=== PATIENT | female | born 1965 | race American Indian/Alaskan Native ===

== ENCOUNTER 2019-05-15 08:06 | Day surgery (SDC) | payer OTHER ==
[~2019-05-15 08:06] MED LIST: SODIUM CHLORIDE 0.9% 1000 ML 1,000 ML IV SCH
--- NOTE | 2019-05-15 09:04 | Anesthesia Day of Surgery ---
Anesthesia Day of Surgery - Day of Surgery Patient Examined: Yes Patient H&P Reviewed: Yes Patient is NPO: Yes Beta Blockers: No
--- NOTE | 2019-05-15 09:04 | Anesthesia Consultation ---
Anesthesia Consult and Med Hx Date of service: 05/15/19 - Airway Anesthetic Teeth Evaluation: Bridges ROM Head & Neck: Adequate Mental/Hyoid Distance: Adequate Mallampati Class: Class II Intubation Access Assessment: Probably Good - Pre-Operative Health Status ASA Pre-Surgery Classification: ASA2 Proposed Anesthetic Plan: MAC - Pulmonary Hx Smoking: Yes (past) Hx Asthma: No Hx Respiratory Symptoms: No SOB: No COPD: No Home Oxygen Therapy: No Hx Pneumonia: No Hx Sleep Apnea: Yes - Cardiovascular System Hx Hypertension: Yes Hx Coronary Artery Disease: No Hx Heart Attack/AMI: No Hx Angina: No Hx Percutaneous Transluminal Coronary Angioplasty (PTCA): No Hx Cardia Arrhythmia: No Hx Pacemaker: No Hx Internal Defibrillator: No Hx Valvular Heart Disease: No Hx Heart Murmur: No Hx Peripheral Vascular Disease: No - Central Nervous System Hx Neuromuscular Disorder: No Hx Seizures: No CVA: No Hx Back Pain: Yes (takes motrin) Hx Psychiatric Problems: Yes (anexity) - Gastrointestinal Hx Ulcer: No Hx Gastroesophageal Reflux Disease: Yes - Endocrine Hx Renal Disease: No Hx End Stage Renal Disease: No Hx Cirrhosis: No Hx Liver Disease: No Hx Insulin Dependent Diabetes: No Hx Non-Insulin Dependent Diabetes: No Hx Thyroid Disease: No Hx Hypothyroidism: No Hx Hyperthyroidism: No - Hematic Hx Anemia: No Hx Sickle Cell Disease: No - Other Systems Hx Alcohol Use: Yes (occ.) Hx Substance Use: No Hx Cancer: No Hx Obesity: No
[2019-05-15] MEDS ORDERED: PROPOFOL 200 MG/20 ML VIAL IV ONE ×2 (09:51→10:25)
--- NOTE | 2019-05-15 09:56 | History and Physical Report ---
HISTORY OF PRESENT ILLNESS: This is a 54-year-old -[place] African female with an underlying history of hypertension and a strong family history of cancer. The patient's sister had ovarian cancer. Father had colon cancer and mother also has a history of multiple sclerosis. Her last colonoscopy was about 4-5 years back, back in 2014, she also has been having GERD symptoms and is to have an EGD as well as a colonoscopy done at [facility] on 05/15/2019. The patient has used the [facility]. MEDICATIONS: She normally uses include lisinopril and hydrochlorothiazide. SOCIAL HISTORY: She denies any history of smoking. Admits to drinking alcohol on occasion. No cardiac issues. No flu shots. ALLERGIES: SHE HAS A HISTORY OF ALLERGY TO MORPHINE. PHYSICAL EXAMINATION: VITAL SIGNS: She is afebrile. Height is 5'6 pressure is 152/94, pulse is 79. HEENT: Shows no JVD. LUNGS: Clear to auscultation. CARDIOVASCULAR: Normal. ABDOMEN: Soft. Bowel sounds present. NEUROLOGIC: The patient is otherwise alert and oriented. ASSESSMENT: Colon polyp screening, family history of cancer, gastroesophageal reflux disease symptoms, esophagitis, hypertension. PLAN: To do an EGD and a colonoscopy at [facility] on 05/15/2019. The patient is to use the [facility]. JOB# [id number] JED/JOSE A
[2019-05-15] MEDS ORDERED: fentaNYL 100 MCG/2 ML INJ ONE (10:24)
--- NOTE | 2019-05-15 10:39 | Procedure Note ---
Date of procedure: 05/15/19 Pre-op diagnosis: GERD/ Colon Polyp Screening/F/H/O Cancer (Father- colon Cancer) Post-op diagnosis: other (Moderate,Erosive Esophagitis/Moderate,Hiatal Hernia/Gastritis/Gastric Fundic Glands/Moderate,Internal Hemorrhoids/Scattered, Diverticular disease/Few samll (possibly Hyperplastic) Rectal Polyps) Procedure: EGD with biopsy and Colonoscopy with Biopsy Anesthesia: MAC Surgeon: MICHELLE BYNUM Estimated blood loss: minimal Pathology: list Specimen disposition: to lab Condition: stable Disposition: same day (Avoid aspirin and NSAID for 4 days; otherwise resume home medication. Treat with PPI,Anusol HC supp, Sitz Bath and follow up in 1 to 2 weeks ([phone]). Patient will be adviced about lifestyle changes for her Hiatal Hernia.)
--- NOTE | 2019-05-15 10:41 | Operative Report ---
PROCEDURE: Esophagogastroduodenoscopy with biopsy. INDICATIONS: This is a 54-year-old -Indian female who has been having GERD symptoms. She is also here for colonoscopy as part of colon polyp screening since she has a strong family history of cancer. PROCEDURE: Esophagogastroduodenoscopy was done after getting informed consent with MAC anesthesia. Instrument was passed through the hypopharynx into the esophagus, which showed moderate erosive esophagitis. Photo documentation and biopsy was obtained. The stomach showed fundic gland in the gastric body, which were biopsied as well as a moderate hiatal hernia. There was some antral gastritis present. The pylorus was patent. Duodenum in the first and second portion appeared normal. Additional biopsy was done from the gastric antrum, gastric body, and angular incisura to rule out for H. pylori and atrophic gastritis. There was no peptic ulcer disease noted. There was minimal bleeding associated with the procedure. No complications associated with the procedure. ASSESSMENT: Gastroesophageal reflux disease symptoms, moderate erosive esophagitis, moderate hiatal hernia, fundic gland polyps involving the gastric body and gastritis. No evidence of any peptic ulcer disease noted and the pylorus was patent. PLAN: Plan is to treat the patient with PPI. The patient will also be encouraged about lifestyle changes since she has a moderate hiatal hernia, asked to avoid aspirin and aspirin-related products for the next few days and follow up in the office in 1-2 weeks' time. In addition, she is to have a colonoscopy done as part of colon polyp screening because of a strong family history of cancer. The procedure was done in the GI lab with assistance of the GI lab team, which included GUY Pelayo and with assistance of Amy griffiths and also with the assistance of anesthesia. JOB# [id number] JED/JOSE A
--- NOTE | 2019-05-15 10:44 | Operative Report ---
PROCEDURE: Colonoscopy with biopsy. INDICATIONS: This is a 54-year-old -[place] female with a strong family history of cancer. The patient's father had colon cancer and sister had a history of ovarian cancer. EGD was done prior to the colonoscopy because of GERD symptoms that showed a moderate hiatal hernia, moderate erosive esophagitis, gastritis as well as fundic gland polyp. The patient will be treated with PPI for that. PROCEDURE: Colonoscopy was done after getting informed consent with MAC anesthesia. After getting informed consent, initial rectal exam was unremarkable. Instrument was passed through the rectum onto the cecum, which was identified by the ileocecal valve and the appendiceal orifice. Visualization was fair. The cecum was examined on the retroverted view. No additional pathology was noted other than for the presence of a few scattered diverticula that was noted in the cecum, ascending colon, few in the transverse and moderate in the left colon. The sigmoid appeared normal. In the rectum, there were several small polyps, possibly hyperplastic that were removed by cold biopsy with minimal bleeding from the biopsy sites. The rectum showed moderate internal hemorrhoid, for which the patient will be treated and if there is persistence, then the patient may require either banding or referral to a colorectal surgeon. ASSESSMENT: Colon polyp screening, family history of cancer, multiple small possibly hyperplastic polyps in the rectum. Scattered diverticular disease throughout the colon, moderate internal hemorrhoid. PLAN: To encourage the patient to take fiber supplements and also to treat the patient with Anusol-HC suppositories, Sitz bath and treat the patient with PPI because of the EGD findings of esophagitis, gastritis. The patient will be asked to avoid aspirin and aspirin-related products for the next few days and follow up in the office in 1-2 weeks' time. Procedure was done in the GI lab with assistance of the GI lab team, which included Wendy TOVAR; Amy retana and with assistance of anesthesia. JOB# [id number] JED/JOSE A
[2019-05-15 11:08] VITALS: BP 153/94
[2019-05-15] MEDS ORDERED: LIDOCAINE MPF (2%) 20 MG/1 ML VIAL 5 ML ONE (13:00)
== END 2019-05-15 08:07 | disposition home or self-care (01) ==
LOC: GIO 08:06
DX: Z12.11 Encounter for screening for malignant neoplasm of colon (principal); K21.0 Gastro-esophageal reflux disease with esophagitis; K64.8 Other hemorrhoids; K29.50 Unspecified chronic gastritis without bleeding; K31.89 Other diseases of stomach and duodenum; K62.1 Rectal polyp; K57.30 Diverticulosis of large intestine without perforation or abscess without bleeding; I10 Essential (primary) hypertension; G47.30 Sleep apnea, unspecified; F41.9 Anxiety disorder, unspecified; Z72.89 Other problems related to lifestyle; Z80.0 Family history of malignant neoplasm of digestive organs; Z80.41 Family history of malignant neoplasm of ovary; Z80.8 Family history of malignant neoplasm of other organs or systems; Z88.5 Allergy status to narcotic agent; Z79.899 Other long term (current) drug therapy
CPT/HCPCS: 43239; 45380; 88305; 88342; J2704; J3010; J7030